=== PATIENT | female | born 1980 | race Caucasian/White ===

== ENCOUNTER 2017-10-14 00:10 | Emergency (ER) | payer OTHER ==
[~2017-10-14] VITALS: Ht 162.6 cm; Wt 111.1 kg
[~2017-10-14 00:10] MED LIST: BACTRIM DS TAB1 EACH PO; CLONAZEPAM2 MG PO; COPAXONE20 MG/KIT SQ; GABAPENTIN300 MG PO; LYRICA75 MG PO; OXCARBAZEPINE PO; PAXIL20 MG PO; SIMVASTATIN20 MG PO; TOPAMAX200 MG PO
--- OUTSIDE RECORDS SUMMARY | 2017-10-14 00:13 | XMS REPORT | Clinical Summary ---
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 Disp. Refills Start End Date Status Date baclofen (LIORESAL) 10 MG Take 1 tablet by mouth 2 07/29/19 Active tablet (two) times a day. 17 dextromethorphan-quinidin Take 1 capsule by mouth 2 06/02/19 Active e (NUEDEXTA) 20-10 mg (two) times a day. 17 capsule gabapentin (NEURONTIN) Take 300 mg by mouth 3 08/29/19 Active 300 mg capsule (three) times a day. 17 multivitamin (MULTIPLE Take 1 tablet by mouth Active VITAMINS) tablet daily. OXcarbazepine (TRILEPTAL) Take 300 mg by mouth 2 03/17/20 Active 300 MG tablet (two) times a day. 16 PARoxetine (PAXIL) 40 MG Take 40 mg by mouth Active tablet daily. topiramate (TOPAMAX) 200 Take 1 tablet by mouth 2 09/12/19 Active MG tablet (two) times a day. 17 HYDROcodone-acetaminophen Take 1 tablet by mouth 3 0 09/23/19 Active (NORCO) 5-325 mg per (three) times a day as 17 tablet needed. Active Problems Problem Noted Date Multiple sclerosis 10/09/2016 Cervicalgia 10/09/2016 Muscle spasm 10/09/2016 Myalgia 10/09/2016 Low back pain with left-sided sciatica 10/09/2016 Drug-induced constipation 10/09/2016 Social History Tobacco Use Types Packs/Day Years Used Date Former Smoker Comments: stopped 03/2016 Sex Assigned at Date Recorded Not on file Last Filed Vital Signs Not on file Plan of Treatment Health Maintenance Due Date Last Done Comments CERVICAL CANCER SCREENING 2003 INFLUENZA VACCINE 12/09/2017 Results Not on fileafter 10/13/2016 Insurance Payer Benefit Subscriber ID Type Phone Address Plan / Group MEDICARE MEDICARE xxxxxxxxxx Medicare [place] PART A [place] B MEDICAID MEDICAID xxxxxxxxx Medicaid
[2017-10-14 00:59] LABS: BASOPHILS # (AUTO) 0.1 (0.0-0.1); BASOPHILS % 0.5 % (0.0-1.0); EOSINOPHILS # (AUTO) 0.4 (0.0-0.4); EOSINOPHILS % 3.1 % (0.0-6.0); HEMATOCRIT 32.5 % (34.2-44.1); LYMPHOCYTES # (AUTO) 5.3 (1.0-3.2); LYMPHOCYTES % 44.1 % (18.0-39.1); MEAN CORPUSCULAR HEMOGLOBIN 25.3 pg (28-32); MEAN CORPUSCULAR HGB CONC 30.8 g/dL (31-35); MEAN CORPUSCULAR VOLUME 82.3 fL (81-99); MONOCYTES # (AUTO) 0.6 (0.2-0.8); MONOCYTES % 4.6 % (4.4-11.3); NEUTROPHILS # (AUTO) 5.7 (2.1-6.9); NEUTROPHILS % 47.2 % (38.7-80.0); PLATELET COUNT 297 x10e3/uL (140-360); RED BLOOD COUNT 3.95 x10e6/uL (3.6-5.1); RED CELL DISTRIBUTION WIDTH 17.7 % (11.7-14.4)
[2017-10-14 01:20] LABS: ALANINE AMINOTRANSFERASE 20 IU/L (0-55); ALBUMIN/GLOBULIN RATIO 1.1 (0.8-2.0); ALKALINE PHOSPHATASE 102 IU/L (40-150); ANION GAP 12.9 mmol/L (8-16); BLOOD UREA NITROGEN 10 mg/dL (7-26); BUN/CREATININE RATIO 12 (6-25); CALCIUM 9.5 mg/dL (8.4-10.2); CARBON DIOXIDE 23 mmol/L (22-29); CHLORIDE 108 mmol/L (98-107); CREATINE KINASE 78 IU/L (29-168); CREATININE, SERUM 0.85 mg/dL (0.57-1.11); EST GLOMERULAR FILTRATION RATE > 60 ML/MIN (60-); GLUCOSE 93 mg/dL (74-118); POTASSIUM 3.9 mmol/L (3.5-5.1); SODIUM 140 mmol/L (136-145)
--- NOTE | 2017-10-14 01:21 | Diagnostic Imaging Report ---
EXAMINATION: CHEST 2 VIEWS INDICATION: Chest pain COMPARISON: 12/14/2012 FINDINGS: TUBES and LINES: None. LUNGS: Lungs are well inflated. Lungs are clear. There is no evidence of pneumonia or pulmonary edema. PLEURA: No pleural effusion or pneumothorax. HEART AND MEDIASTINUM: The cardiomediastinal silhouette is unremarkable. BONES AND SOFT TISSUES: No acute osseous lesion. Soft tissues are unremarkable. UPPER ABDOMEN: No free air under the diaphragm. IMPRESSION: No acute thoracic abnormality. Signed by: Dr. Kamran Oliva M.D. on 10/14/2017 1:17 AM
[2017-10-14 01:38] LABS: ANISOCYTOSIS SLIGHT; EOSINOPHILS % (MANUAL) 5 % (0-7); LYMPHOCYTES % (MANUAL) 43 % (19-48); MONOCYTES % (MANUAL) 5 % (3.4-9.0); MYELOCYTES % (MANUAL) 1 % (0-0); NEUTROPHILS % (MANUAL) 46 % (40-74); PLATELET ESTIMATE ADEQUATE; PLATELET MORPHOLOGY COMMENT NORMAL; RBC MORPHOLOGY COMMENT NORMAL
[2017-10-14 01:59] VITALS: BP 142/92
== END 2017-10-14 02:03 | disposition home or self-care (01) ==
LOC: ER 00:10
DX: G40.309 Generalized idiopathic epilepsy and epileptic syndromes, not intractable, without status epilepticus (principal); G35 Multiple sclerosis; J45.909 Unspecified asthma, uncomplicated; F17.210 Nicotine dependence, cigarettes, uncomplicated
CPT/HCPCS: 36415; 71046; 80053; 82550; 82553; 84484; 85025; 93005; 99284

== ENCOUNTER 2020-03-19 05:12 | Emergency (ER) | payer OTHER ==
[~2020-03-19] VITALS: Ht 162.6 cm; Wt 111.1 kg
[2020-03-19 05:52] LABS: BASOPHILS # (AUTO) 0.1 (0.0-0.1); BASOPHILS % 0.5 % (0.0-1.0); EOSINOPHILS # (AUTO) 0.2 (0.0-0.4); EOSINOPHILS % 2.2 % (0.0-6.0); HEMATOCRIT 35.2 % (34.2-44.1); HEMOGLOBIN 11.4 g/dL (12.0-16.0); LYMPHOCYTES # (AUTO) 3.5 (1.0-3.2); LYMPHOCYTES % 35.4 % (18.0-39.1); MEAN CORPUSCULAR HEMOGLOBIN 30.2 pg (28-32); MEAN CORPUSCULAR HGB CONC 32.4 g/dL (31-35); MEAN CORPUSCULAR VOLUME 93.1 fL (81-99); MONOCYTES # (AUTO) 0.7 (0.2-0.8); MONOCYTES % 6.8 % (4.4-11.3); NEUTROPHILS # (AUTO) 5.4 (2.1-6.9); NEUTROPHILS % 54.5 % (38.7-80.0); PLATELET COUNT 323 x10e3/uL (140-360); RED BLOOD COUNT 3.78 x10e6/uL (3.6-5.1); RED CELL DISTRIBUTION WIDTH 13.8 % (11.7-14.4)
[2020-03-19 05:57] LABS: CLARITY,URINE CLEAR (CLEAR); COLOR,URINE YELLOW (YELLOW); KETONES,URINE NEGATIVE (NEGATIVE); LEUKOCYTE ESTERASE ,URINE NEGATIVE (NEGATIVE); NITRITE,URINE NEGATIVE (NEGATIVE); PROTEIN,URINE DIPSTICK NEGATIVE (NEGATIVE)
[2020-03-19 05:58] LABS: BILIRUBIN,URINE NEGATIVE (NEGATIVE); URINE UROBILINOGEN 0.2 mg/dL (0.2 - 1)
--- OUTSIDE RECORDS SUMMARY | 2020-03-19 06:06 | XMS REPORT | Clinical Summary ---
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 Active dextromethorphan-quinidin Take 1 0 /2 e (NUEDEXTA) 20-10 mg capsule by 7 capsule mouth 2 (two) times a day. Active gabapentin (NEURONTIN) Take 300 mg 0 //2 01 300 mg capsule by mouth 3 7 (three) times a day. Active multivitamin (MULTIPLE Take 1 tablet 0 VITAMINS) tablet by mouth daily. Active OXcarbazepine (TRILEPTAL) Take 300 mg 0 11/0 300 MG tablet by mouth 2 6 (two) times a day. Active PARoxetine (PAXIL) 40 MG Take 40 mg by 0 tablet mouth daily. Active topiramate (TOPAMAX) 200 Take 1 tablet 0 / /201 MG tablet by mouth 2 7 (two) times a day. Active HYDROcodone-acetaminophen Take 1 tablet 0 05/1 (NORCO) 5-325 mg per by mouth 3 7 tablet (three) times a day as needed. Active Problems Problem Noted Date Multiple sclerosis 10/09/2016 Cervicalgia 10/09/2016 Muscle spasm 10/09/2016 Myalgia 10/09/2016 Low back pain with left-sided sciatica 10/09/2016 Drug-induced constipation 10/09/2016 Social History Date Tobacco Use Types Packs/Day Years Used Former Smoker Comments: stopped 03/2016 Sex Assigned at Date Recorded Not on file Last Filed Vital Signs Not on file Plan of Treatment Health Maintenance Due Date Last Done Comments CERVICAL CANCER SCREENING 2003 INFLUENZA VACCINE 12/10/2019 Results Not on fileafter 03/19/2019 Insurance Type Payer Benefit Subscriber ID Effective Phone Address Plan / Dates Group Medicare MEDICARE MEDICARE [id number] 2016-P ALEX, PART A AND resent [place] B Medicaid MEDICAID MEDICAID [id number] 2016-P resent Advance Directives For more information, please contact: [phone] 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
--- OUTSIDE RECORDS SUMMARY | 2020-03-19 06:06 | XMS REPORT | Clinical Summary ---
Author Author FRANKI [facility]jobs [email or web address] Address Unknown Phone Unavailable Care Team Providers Care Belt Maker Helper Name Role Phone Serge Law PCP Unavailable Allergies Comments Active Allergy Reactions Severity Noted Date Cephalosporins 02/23/2018 Codeine Itching High 10/09/2016 Penicillins 02/23/2018 Tetracyclines 02/23/2018 Tramadol 02/23/2018 Medications Not on file Active Problems No known active problems Encounters Care Team Description Date Type Specialty Patricio Engle MD 3, [facility] Ministerio Mr Multiple sclerosis (HCC) 08/17/2019 [facility] Magnetic Resonance Encounter Imaging Patricio Engle MD 3, [facility] Ministerio Mr Multiple sclerosis (HCC) 08/17/2019 [facility] Magnetic Resonance Encounter Imaging Patricio Engle MD Multiple sclerosis ([facility]) (Primary Dx) 06/22/2019 Outside Orders Central Scheduling after 03/19/2019 Social History Date Tobacco Use Types Packs/Day Years Used Never Assessed Sex Assigned at Date Recorded Not on file Last Filed Vital Signs Reading Time Taken Comments Vital Sign 102/79 08/17/2019 1:16 PM CDT Blood Pressure 70 08/17/2019 1:16 PM CDT Pulse - - Temperature 18 08/17/2019 1:16 PM CDT Respiratory Rate 97% 08/17/2019 1:16 PM CDT Oxygen Saturation - - Inhaled Oxygen Concentration - - Weight - - Height - - Body Mass Index Plan of Treatment Health Maintenance Due Date Last Done Comments LIPID PANEL 2002 CERVICAL CANCER SCREENING 2003 PAP ONLY (Age 21-65) MEDICARE ANNUAL WELLNESS 05/12/2018 (YEAR 2 or FIRST YEAR if no IPPE) INFLUENZA VACCINE (#1) 2020 01/20/2011 Procedures Comments Procedure Name Priority Date/Time Associated Diag nosis MR CERVICAL SPINE WITH & Routine 08/17/2019 Multi ple sclerosis (HCC) WITHOUT IV CONTRAST 3:00 PM CDT MR BRAIN WITH & WITHOUT Routine 08/17/2019 Multip le sclerosis (HCC) IV CONTRAST 3:00 PM CDT after 03/19/2019 Results * MR cervical spine without & with IV contrast (08/17/2019 3:00 PM CDT) Specimen Narrative Performed At FINAL REPORT [facility] MR, SPINE, CERVICAL, WITHOUT / WITH IV CONTRAST HISTORY: Multiple sclerosis COMPARISON: MRI of the cervical spine 07/01/2018 TECHNIQUE: Multiplanar, multisequence M RI examination of the cervical spine was performed before and after th e administration of intravenous, gadolinium based contrast. Motion artifacts obscure some details. DISCUSSION: Alignment: Straightening of the cervica l spine lordosis. No scoliosis. Vertebrae: No acute fractures, infect ion or neoplasm. Mild to moderate chronic T3 vertebral compressi on fracture has not significantly changed. Cervicomedullary junction: No abnormali ties. Spinal cord: The cord is visualized from the foramen magnum through T4-T5. Focal T2 hyperintense lesions in the le ft lateral cord at C2, ventral cord at C3, and left ventral cord at C4 have not significantly changed with differences in technique t aken into account; these are best seen on axial 3-D MERGE images. No definite new T2 hyperintense cord le sions are seen. The spinal cord is normal in size. No CSF-like T1 cord hypointensities are seen. No abnormal cord enhancement is seen. Soft tissues: No signal abnormalities. Degenerative changes: The discs are ove rall preserved. IMPRESSION: 1. A few unchanged scattered T2 hyperin tense lesions in the cervical cord (with differences in technique saida en into account). 2. No enhancing or new T2 hyperintense cord lesions. Signed: Mario Bautista MD Report Verified Date/Time: 08/17/2019 15:15:52 Reading Location: [facility] Ro 2 - B01.626 Procedure Note Interface, External Ris In - 08/17/2019 4:49 PM CDT FINAL REPORT MR, SPINE, CERVICAL, WITHOUT / WITH IV CONTRAST HISTORY: Multiple sclerosis COMPARISON: MRI of the cervical spine 07/01/2018 TECHNIQUE: Multiplanar, multisequence MRI examination of the cervical spine was performed before and after the administration of intravenous, gadolinium based contrast. Motion artifacts obscure some details. DISCUSSION: Alignment: Straightening of the cervical spine lordosis. No scoliosis. Vertebrae: No acute fractures, infection or neoplasm. Mild to moderate chronic T3 vertebral compression fracture has not significantly changed. Cervicomedullary junction: No abnormalities. Spinal cord: The cord is visualized from the foramen magnum through T4-T5. Focal T2 hyperintense lesions in the left lateral cord at C2, ventral cord at C3, and left ventral cord at C4 have not significantly changed with differences in technique taken into account; these are best seen on axial 3-D MERGE images. No definite new T2 hyperintense cord lesions are seen. The spinal cord is normal in size. No CSF-like T1 cord hypointensities are seen. No abnormal cord enhancement is seen. Soft tissues: No signal abnormalities. Degenerative changes: The discs are overall preserved. IMPRESSION: 1. A few unchanged scattered T2 hyperint ense lesions in the cervical cord (with differences in technique taken into account). 2. No enhancing or new T2 hyperintense c ord lesions. Signed: Mario Bautista MD Report Verified Date/Time: 08/17/2019 15:15:52 Reading Location: [facility] Reading Room [address] [place] [address] Performing Organization Address City/State/Zipcode Ph one Number [facility] * MR brain without & with IV contrast (08/17/2019 3:00 PM CDT) Specimen Narrative Performed At FINAL REPORT [facility] MR, BRAIN, WITHOUT / WITH IV CONTRAST HISTORY: Multiple sclerosis COMPARISON: MRI of the brain 9 TECHNIQUE: Multiplanar, multisequence MRI of the b rain (including diffusion-weighted imaging) was perform ed before and after the administration of intravenous, gadolini um based contrast. 3-D FLAIR and postcontrast T1-weighted images wer e obtained. 10 mL of Gadavist were administered. DISCUSSION: Scalp/bone marrow: Unremarkable. Ventricles: Normal in size and config uration. No hydrocephalus. Extra-axial spaces: No masses or fluid collections. Parenchyma: T2 lesion load: Number: Innumerable scattered discrete and confluent T2 hyperintense lesions have not significantly changed. No definite new T2 hyperintense lesions are seen. Size: Ranging from 2 mm to 22 mm whe n confluent Location: Juxtacortical, periventricula r/deep white matter, corpus callosum, bilateral internal capsules, midbrain periaqueductal region, right jacklyn, and medulla. CSF-like T1 hypointensities: None. Enhancing foci: None. Previously seen e nhancing lesions have resolved. Corpus callosum volume: There is stable mild volume loss of the callosal body. Brain volume: There is stable mild gene ralized cerebral volume loss. Otherwise, no mass, hemorrhage, or acut e vascular insults. Vessels: Normal flow voids in major art eries and veins. Sellar/Suprasellar region: No abnorma lities. Craniocervical junction: No abnormaliti es. Incidental findings: None. IMPRESSION: 1.Previously seen enhancing lesions hav e resolved. Otherwise, unchanged innumerable scattered T2 hype rintense lesions are compatible with prior demyelination. 2.No enhancing or new T2 hyperintense l esions. 3.Stable mild generalized cerebral and callosal volume loss. Signed: Mario Bautista MD Report Verified Date/Time: 08/17/2019 15:27:39 Reading Location: [facility] Ro 2 - B01.626 Procedure Note Interface, External Ris In - 08/17/2019 4:49 PM CDT FINAL REPORT MR, BRAIN, WITHOUT / WITH IV CONTRAST HISTORY: Multiple sclerosis COMPARISON: MRI of the brain 07/01/2018 TECHNIQUE: Multiplanar, multisequence MRI of the brain (including diffusion-weighted imaging) was performed before and after the administration of intravenous, gadolinium based contrast. 3-D FLAIR and postcontrast T1-weighted images were obtained. 10 mL of Gadavist were administered. DISCUSSION: Scalp/bone marrow: Unremarkable. Ventricles: Normal in size and configuration. No hydrocephalus. Extra-axial spaces: No masses or fluid collections. Parenchyma: T2 lesion load: Number: Innumerable scattered discrete and confluent T2 hyperintense lesions have not significantly changed. No definite new T2 hyperintense lesions are seen. Size: Ranging from 2 mm to 22 mm when confluent Location: Juxtacortical, periventricular/deep white matter, corpus callosum, bilateral internal capsules, midbrain periaqueductal region, right jacklyn, and medulla. CSF-like T1 hypointensities: None. Enhancing foci: None. Previously seen enhancing lesions have resolved. Corpus callosum volume: There is stable mild volume loss of the callosal body. Brain volume: There is stable mild generalized cerebral volume loss. Otherwise, no mass, hemorrhage, or acute vascular insults. Vessels: Normal flow voids in major arteries and veins. Sellar/Suprasellar region: No abnormalities. Craniocervical junction: No abnormalities. Incidental findings: None. IMPRESSION: 1.Previously seen enhancing lesions have resolved. Otherwise, unchanged innumerable scattered T2 hyperintense lesions are compatible with prior demyelination. 2.No enhancing or new T2 hyperintense le sions. 3.Stable mild generalized cerebral and c allosal volume loss. Signed: Mario Bautista MD Report Verified Date/Time: 08/17/2019 15:27:39 Reading Location: [facility] Reading Room [address] [place] [address] Performing Organization Address City/State/Zipcode Ph one Number [facility] RIS after 03/19/2019 Insurance Type Payer Benefit Subscriber ID Effective Phone Address Plan / Dates Group [facility] [id number] 2017-P MEDICARE MGD CARE MEDICARE resent [phone]
--- OUTSIDE RECORDS SUMMARY | 2020-03-19 06:06 | XMS REPORT | Continuity of Care Document ---
Author Author [facility] t Organization [facility] Address [address] [place] [address] Phone Unavailable Care Team Providers Care Button Cutter Name Role Phone DONOVAN JAVED DO PCP Silvino JONES, Cecilio Osuna Attphys [phone] Caden Engle MD Attphys 3[facility] Attphys Unavailable Oniel JONES, Patricia Curry Attphys JEMAL LIVE Attphys Unavailable CHEL VASQUEZ Attphys Unavailable Lj TERRY Attphys Unavailable Payers Payer Name Policy Type Policy Number Effective Date Expiration Date S luciano [facility] - MEDICARE MGD CAREUNI SCOTTIE MEDICARE [id number] 2017-Present [id number] 2017 00:00:00 [facility] Self Pay NA [facility] Problems Condition Name Condition Details Condition Category Status Onset Date Resolution Date Last Treatment Date Treating Clinician Comments Source Multiple sclerosis Multiple sclerosis Disease Active 2016-10-09 00:00:0 0 Sidney Bonner Cervicalgia Cervicalgia Disease Active 2016-10-09 00:00:00 Sidney Bonner Muscle spasm Muscle spasm Disease Active 2016-10-09 00:00:00 Sidney Bonner Myalgia Myalgia Disease Active 2016-10-09 00:00:00 Sidney Bonner Low back pain with left-sided sciatica Low back pain with le ft-sided sciatica Disease Active 2016-10-09 00:00:00 Sidney Bonner Drug-induced constipation Drug-induced constipation Disease Ac tive 2016-10-09 00:00:00 Sidney hennessy Cellulitis of right lower extremity Cellulitis of leg, right Proble m Active 2015-03-31 00:00:00 [facility] Cellulitis of abdominal wall Cellulitis, abdominal wall Problem Active 2015-02-17 00:00:00 [facility] Allergies, Adverse Reactions, Alerts Allergy Name Allergy Type Status Severity Reaction(s) Onset Date Inacti ve Date Treating Clinician Comments Source Cephalosporins Propensity to adverse reactions Active [facility] Penicillins Propensity to adverse reactions Active 2017 00:00:00 [facility] Tetracyclines Propensity to adverse reactions Active 26-02-16 00:00:00 [facility] r Tramadol Propensity to adverse reactions Active 2018-02-23 00:00:00 [facility] Penicillin Allergy to Substance Active 2017-10-14 00:00:00 [facility] Cephalosporins Allergy to Substance Active 2017-10-14 00:00 :00 [facility] Tetracyclines Allergy to Substance Active 2017-10-14 00:00: 00 [facility] Tramadol Allergy to Substance Active Mild ITCH 2017-10-14 00:00:00 [facility] Cephalosporins Propensity to adverse reactions to drug Active Itching 2016-10-09 00:00:00 Sidney Mckeon odist Codeine Propensity to adverse reactions to drug Active Itching 2016-10-09 00:00:00 Sidney schaefer Codeine Propensity to adverse reactions Active Itching 00:00:00 [facility] Demeclocycline Propensity to adverse reactions to drug Active Rash 2014-02-01 00:00:00 Sidney schaefer Penicillins Propensity to adverse reactions to drug Active Rash 2014-02-01 00:00:00 Sidney schaefer Tramadol Propensity to adverse reactions to drug Active Itching 2014-02-01 00:00:00 Sidney schaefer Social History Social Habit Start Date Stop Date Quantity Comments Source Sex Assigned At [facility] Tobacco Comment 2016-10-09 00:00:00 2016-10-09 00:00:00 stopped 03/30 16 Sidney Bonner Smoking Status Start Date Stop Date Source Former smoker 2016-10-09 00:00:00 2016-10-09 00:00:00 Sidney Bonner Medications Ordered Medication Name Filled Medication Name Start Date Stop Da te Current Medication? Ordering Clinician Indication Dosage Frequency Signature (SIG) Comments Components Source multivitamin (MULTIPLE VITAMINS) tablet 2016-10-09 09:56:53 Yes 1{tbl} QD Take 1 tablet by mouth daily. Yg Bonner PARoxetine (PAXIL) 40 MG tablet 2016-10-09 09:56:53 Yes 40mg QD Take 40 mg by mouth daily. Sidney Bonner HYDROcodone-acetaminophen (NORCO) 5-325 mg per tablet 2016-09-22 00:00:00 Yes 1{tbl} Q.[id number] Take 1 tablet by mouth 3 (three) times a day as needed. Sidney Bonner topiramate (TOPAMAX) 200 MG tablet 2016-09-11 00:00:00 Yes 1{tbl} Q.5D Take 1 tablet by mouth 2 (two) times a day. Sidney Bonner gabapentin (NEURONTIN) 300 mg capsule 2016-08-28 00:00:00 Yes 300mg Q.[id number] Take 300 mg by mouth 3 (three) times a day. Sidney Bonner baclofen (LIORESAL) 10 MG tablet 2016-07-28 00:00:00 Yes 1{tbl} Q.5D Take 1 tablet by mouth 2 (two) times a day. Sidney Bonner dextromethorphan-quinidine (NUEDEXTA) 20-10 mg capsule 2016-06-02 00:00:00 Yes 1{capsule} Q.5D Take 1 capsule by mouth 2 (two) times a day. Sidney Bonner OXcarbazepine (TRILEPTAL) 300 MG tablet 2016-03-17 00:00:00 Yes 300mg Q.5D Take 300 mg by mouth 2 (two) times a day. 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 [facility] Gabapentin 300 Mg Capsule Gabapentin 300 Mg Capsule Yes 300 Three Times A Day [facility] Glatiramer (Copolymer-1) (Copaxone) 20 Mg/Kit Syr Glat iramer (Copolymer-1) (Copaxone) 20 Mg/Kit Syr Yes 20 Daily [facility] Oxycarbazpine Oxycarbazpine Yes 300 Twice A Day [facility] Paroxetine Hcl (Paxil) 20 Mg Tablet Paroxetine Hcl (Paxil) 20 Mg Tabl et Yes 20 Daily [facility] Topiramate (Topamax) 200 Mg Tablet Topiramate (Topamax) 200 Mg Tablet Yes 200 Twice A Day [facility] Clonazepam 2 Mg Tablet, 2 Mg Oral Clonazepam 2 Mg Tablet, 2 Mg O ral 2015-03-30 00:00:00 No 2 Daily [facility] Pregabalin (Lyrica) 75 Mg Cap, 75 Mg Oral Pregabalin ( Lyrica) 75 Mg Cap, 75 Mg Oral 2015-03-30 00:00:00 No 75 Twice A Day [facility] Simvastatin 20 Mg Tablet, 20 Mg Oral Simvastatin 20 Mg Tablet, 2 0 Mg Oral 2015-03-30 00:00:00 No 20 Daily [facility] Vital Signs Vital Name Observation Time Observation Value Comments Source Systolic blood pressure 2019-08-17 13:16:00 102 mm[Hg] [facility] Diastolic blood pressure 2019-08-17 13:16:00 79 mm[Hg] [facility] Heart rate 2019-08-17 13:16:00 70 /min [facility] Respiratory rate 2019-08-17 13:16:00 18 /min [facility] Oxygen saturation in Arterial blood by Pulse oximetry 08-16 13:16:00 97 /min [facility] Procedures Procedure Date / Time Performed Performing Clinician Norm maria victoria MR BRAIN WITH & WITHOUT IV CONTRAST 2019-08-17 15:00:00 Patricio Engle [facility] MR CERVICAL SPINE WITH & WITHOUT IV CONTRAST 2019-08-17 15:0 0:00 Patricio Engle [facility] X-ray of chest, two views 2017-10-14 00:00:00 AJAY TERRY [facility] Plan of Care Planned Activity Planned Date Details Comments Source Future Scheduled Test 2020-01-10 00:00:00 INFLUENZA VACCINE (#1) [code = INFLUENZA VACCINE (#1)] [facility] Future Scheduled Test 2019-12-10 00:00:00 INFLUENZA VACCINE [code = INFLUENZA VACCINE] [facility] Future Scheduled Test 2018-05-12 00:00:00 MEDICARE ANNUAL WE LLNESS (YEAR 2 or FIRST YEAR if no IPPE) [code = MEDICARE ANNUAL WELLNESS (YEAR 2 or FIRST YEAR if no IPPE)] [facility] Future Scheduled Test 2003 00:00:00 Screening for david gnant neoplasm of cervix (procedure) [code = 155584204] [facility] 00:00:00 Screening for david gnant neoplasm of cervix (procedure) [code = 616046767] [facility] Future Scheduled Test 2002 00:00:00 Lipid panel (proce dure) [code = 20669284] [facility] Encounters Start Date/Time End Date/Time Encounter Type Admission Type Attendi [facility] Care Department Encounter ID Source 2020-02-07 09:57:57 2020-02-07 10:27:57 Office Visit Enrrique Louis [facility] [id number] 2019-06-20 09:35:58 2019-06-20 10:05:58 Office Visit Patricio Flores [facility] [id number] 2018-12-16 10:32:28 2018-12-16 14:57:42 Office Visit Patricio Flores [facility] [id number] 2017-10-14 00:10:00 2017-10-14 02:03:00 Departed Emergency Room 1 [facility] [id number] [facility] Results Test Description Test Time Test Comments Results Result Comments Source MR, BRAIN, WITHOUT / WITH IV CONTRAST 2019-08-17 15:27:00 FINAL REPORT MR, BRAIN, WITHOUT / WITH IV CONTRAST HISTORY: Multiple sclerosis COMPARISON: MRI of the brain 07/01/2018 TECHNIQUE:Multiplanar, multisequence MRI of the brain (including diffusion-weighted imaging) was performed before and after the administration of intravenous, gadolinium based contrast. 3-D FLAIR and postcontrast T1-weighted images were obtained. 10 mL of Gadavist were administered. DISCUSSION: Scalp/bone marrow: Unremarkable.Ventricles: Normal in size and configuration. No hydrocephalus.Extra-axial spaces: No masses or fluid collections. Parenchyma:T2 lesion load: Number: Innumerable scattered discrete and confluent T2 hyperintense lesions have not significantly changed. No definite new T2 hyperintense lesions are seen.Size: Ranging from 2 mm to 22 mm when confluentLocation: Juxtacortical, periventricular/deep white matter, corpus callosum, bilateral internal capsules, midbrain periaqueductal region, right jacklyn, and medulla. CSF-like T1 hypointensities: None.Enhancing foci: None. Previously seen enhancing lesions have resolved.Corpus callosum volume: There is stable mild volume loss of the callosal body.Brain volume: There is stable mild generalized cerebral volume loss. Otherwise, no mass, hemorrhage, or acute vascular insults. Vessels: Normal flow voids in major arteries and veins.Sellar/Suprasellar region: No abnormalities.Craniocervical junction: No abnormalities.Incidental findings: None. IMPRESSION:1.Previously seen enhancing lesions have resolved. Otherwise, unchanged innumerable scattered T2 hyperintense lesions are compatible with prior demyelination.2.No enhancing or new T2 hyperintense lesions. 3.Stable mild generalized cerebral and callosal volume loss. Signed: Mario Bautistaepkevin Verified Date/Time: 08/17/2019 15:27:39 Reading Location: [facility] Room [address] [place] [address] brain without & with IV contrast 2019-08-17 15:27:00 Interface, External Ris In - 08/17/2019 4:49 PM CDTFINAL REPORT MR, BRAIN, WITHOUT / WITH IV CONTRAST HISTORY: Multiple sclerosis COMPARISON: MRI of the brain 07/01/2018 TECHNIQUE:Multiplanar, multisequence MRI of the brain (including diffusion-weighted imaging) was performed before and after the administration of intravenous, gadolinium based contrast. 3-D FLAIR and postco ntrast T1-weighted images were obtained. 10 mL of Gadavist were administered. DISCUSSION: Scalp/bone marrow: Unremarkable.Ventricles: Normal in size and configuration. No hydrocephalus.Extra-axial spaces: No masses or fluid collections. Parenchyma:T2 lesion load: Number: Innumerable scattered discrete and confluent T2 hyperintense lesions have not significantly changed. No definite new T2 hyperintense lesions are seen.Size: Ranging from 2 mm to 22 mm when confluentLocation: Juxtacortical, periventricular/deep white matter, corpus callosum, bilateral internal capsules, midbrain periaqueductal region, right jacklyn, and medulla. CSF-like T1 hypointensities: None.Enhancing foci: None. Previously seen enhancing lesions have resolved.Corpus callosum volume: There is stable mild volume loss of the callosal body.Brain volume: There is stable mild generalized cerebral volume loss. Otherwise, no mass, hemorrhage, or acute vascular insults. Vessels: Normal flow voids in major arteries and veins.S ellar/Suprasellar region: No abnormalities.Craniocervical junction: No abnormalities.Incidental findings: None. IMPRESSION:1.Previously seen enhancing lesions have resolved. Otherwise, unchanged innumerable scattered T2 hyperintense lesions are compatible with prior demyelination.2.No enhancing or new T2 hyperintense lesions. 3.Stable mild generalized cerebral and callosal volume loss. Signed: Mario Bautista MDRricardo Verified Date/Time: 08/17/2019 15:27:39 Reading Location: [facility] Reading Room [address] [place] [address] [facility] MR, SPINE, CERVICAL, WITHOUT / WITH IV CONTRAST 2019-08-17 15:15 :00 FINAL REPORT MR, SPINE, CERVICAL, WITHOUT / WITH IV CONTRAST HISTORY: Multiple sclerosis COMPARISON: MRI of the cervical spine 07/01/2018 TECHNIQUE: Multiplanar, multisequence MRI examination of the cervical spine was performed before and after the administration of intravenous, gadolinium based contrast. Motion artifacts obscure some details. DISCUSSION: Alignment: Straight ening of the cervical spine lordosis. No scoliosis.Vertebrae: No acute fractures, infection or neoplasm. Mild to moderate chronic T3 vertebral compression fracture has not significantly changed.Cervicomedullary junction: No abnormalities. Spinal cord: The cord is visualized from the foramen magnum through T4-T5.Focal T2 hyperintense lesions in the left lateral cord at C2, ventral cord at C3, and left ventral cord at C4 have not significantly changed with differences in technique taken into account; these are best seen on axial 3-D MERGE images.No definite new T2 hyperintense cord lesions are seen.The spinal cord is normal in size. No CSF-like T1 cord hypointensities are seen. No abnormal cord enhancement is seen. Soft tissues: No signal abnormalities. Degenerative changes: The discs are overall preserved. IMPRESSION: 1. A few unchanged scattered T2 hyperintense lesions in the cervical cord (with differences in technique taken into account).2. No enhancing or new T2 hyperintense cord lesions. Signed: Mario Bautista Verified Date/Time: 08/17/2019 15:15:52 Reading Location: [facility] Room [address] [place] [address] cervical spine without & with IV contrast 2019-08-17 15:15:00 Interface, External Ris In - 08/17/2019 4:49 PM CDTFINAL REPORT MR, SPINE, CERVICAL, WITHOUT / WITH IV CONTRAST HISTORY: Multiple sclerosis COMPARISON: MRI of the cervical spine 07/01/2018 TECHNIQUE: Multiplanar, multisequence MRI examination of the cervical spine was performed before and after the administration of intravenous, gadolinium based contrast. Motion artifacts obscure some details. DISCUSSION: Alignment: Straightening of the cervical spine lordosis. No scoliosis.Vertebrae: No acute fractures, infection or neoplasm. Mild to moderate chronic T3 vertebral compression fracture has not significantly changed.Cervicomedullary junction: No abnormalities. Spinal cord: The cord is visualized from the foramen magnum through T4-T5.Focal T2 hyperintense lesions in the left lateral cord at C2, ventral cord at C3, and left ventral cord at C4 have not significantly changed with differences in technique taken into account; these are best seen on axial 3-D MERGE images.No definite new T2 hyperintense cord lesions are seen.The spinal cord is normal in size. No CSF-like T1 cord hypointensities are seen. No abnormal cord enhancement is seen. Soft tissues: No signal abnormalities. Degenerative changes: The discs are overall preserved. IMPRESSION: 1. A few unchanged scattered T2 hyperintense lesions in the cervical cord (with differences in technique taken into account).2. No enhancing or new T2 hyperintense cord lesions. Signed: Mario Bautista Verified Date/Time: 08/17/2019 15:15:52 Reading Location: [facility] Reading Room [address] [place] [address] [facility] MR, SPINE, CERVICAL, WITHOUT / WITH IV CONTRAST 2018-07-01 17:40 :00 FINAL REPORT Examination: MR, SPINE, CERVICAL, WITHOUT / WITH IV CONTRAST HISTORY:38-year-old female with relapsing remitting multiple sclerosis, currently on disease modifying therapy and has missed a couple of doses and recently had two loss of consciousness spells, possibly seizures.COMPARISON:[facility] cervical spine MRI performed September 22, 2017.TECHNIQUE: Sagittal and axial T1 postcontrast; sagittal T2 and STIR. Axial T2. Intravenous contrast: 10 mL Gadavist FINDINGS:Limited exam due to motion artifact on the axial and sagittal T2 and post contrast images. Spinal cord size: Normal, unchanged. Enhancing lesions: None, unchanged. T2 lesions: Single lesion the ventral cord at C3 is relatively comparing sagittal STIR imaging as there was significant motion artifact on both the axial and sagittal T2 images.No new large lesion. T1 lesions: There are no lesions of cerebrospinal fluid equivalent intensity. Vertebrae: Normal alignment, height, and signal i ntensity. Discs: No abnormalities.Foramen magnum: No Chiari malformation, mass, or basilar invagination. Additional findings:None. IMPRESSION:1.Despite limitation, no definite new or enhancing lesion lesion when compared to prior cervical spine MRI performed September 22, 2017. 2.Unchanged single nonenhancing lesion, consistent multiple sclerosis. Signed: Milly Rodríguezort Verified Date/Time: 07/01/2018 17:40:05 , BRAIN, WITHOUT / WITH IV CONTRAST 2018-07-01 17:36:00 FINAL REPORT Examination: MR, BRAIN, WITHOUT / WITH IV CONTRAST HISTORY:38-year-old female with relapsing remitting multiple sclerosis, currently on disease modifying therapy and has missed a couple of doses and recently had two loss of consciousness spells, possibly seizures.COMPARISON:[facility] brain MRI performed September 22, 2017.TECHNIQUE: Sagittal FLAIR with axial and coronal reconstructions; axial precontrast T1, postcontrast T2, FLAIR; axial, sagittal and coronal postcontrast T1. Contrast: 10 mL Gadavist. FINDINGS:T2 lesions: Number: Two new lesions at the right callosal septal interface and right inferior parietal lobule which are also enhancing. Unchanged remaining innumerable discrete T2 lesions. Location: Periventricular, deep, callosal septal interface, juxtacortical white matter. Right jacklyn, left posterior medulla. T1 "black holes": There are no lesions of cerebrospinal fluid equivalent intensity. There is a single lesion of moderate hypointensity in the right frontal periventricular white matter. Enhancing lesions: There are two new enhancing lesions at the right callosal septal interface and right inferior parietal lobule. Corpus callosum volume: Mild diffuse volume loss, unchanged. Brain volume: Mild generalized volume loss, unchanged. Additional finding: No additional intracranial abnormality. IMPRESSION:1.There are two new enhancing lesion when compared to prior [facility] brain MRI performed September 22, 2017, consistent with active demyelinating plaques.2.Unchanged remaining nonenhancing lesions, consistent multiple sclerosis. Signed: Milly Rodríguez MDReport Verified Date/Time: 07/01/2018 17:36:28 -CREATININE 2018-07-01 12:21:00 Test Item POC-CREATININE (BEAKER) (test code = 1859) 0.7 mg/dL 0.6-1.[address] [address] POC-EGFR (BEN) (test code = 1860) 95 mL/min/1.73M2 CT, BRAIN, WITHOUT [id number] 17:50:00Reason for exam:->headacheIs the patient ?->UnknownWhat is the patient's sedation requirement?->No SedationFINAL REPORT CT head without contrast 02/23/2018 5:49 PM CLINICAL HISTORY: Headache, acute, norm neuro exam TECHNIQUE: Axial noncontrast CT images through the head were obtained. This examination was performed according to our departmental dose optimization program, which includes automated exposure control, adjustment of the mA and/or kV according to patient size, and/or use of iterated reconstruction technique. COMPARISON: None available FINDINGS: There is no hemorrhage, extra-axial collection, mass, hydrocephalus, or midline shift. Supratentorial white matter leukoencephalopathy may be of microvascular or demyelinating etiology. There is parenchymal volume loss that is greater than expected for age. The visualized paranasal sinuses and mastoid air cells are well aerated. The skull is intact. IMPRESSION: No intracranial hemorrhage or mass effect. Supratentorial white matter leukoencephalopathy, which can be further characterized with MRI if clinically indicated. Signed: Del Harrington Verified Date/Time: 02/23/2018 17:50:23 Reading Location: [facility] Reading Room , CHEST, 1 VIEW, NON [id number] 17:17:00Reason for exam:->chest painIs the patient ?->UnknownFINAL REPORT Chest, AP view. History: chest pain. Comparison: None available. Discussion: The cardiomediastinal silhouette and pulmonary vasculature are within normal limits. The lungs are clear without evidence of consolidation or effusion. There are no acute osseous abnormalities. The soft tissues are unremarkable. IMPRESSION: No acute cardiopulmonary abnormality. Signed: Emily López Verified Date/Time: 02/23/2018 17:17:44 Reading Location: [facility] C0[facility] Consult Reading Room B-TYPE NATRIURETIC FACTOR (BNP)2018-02-23 17:04:00* Test Item Value Reference Range Interpretation Comments B-TYPE NATRIURETIC PEPTIDE (BEAKER) (test code = 700) 13 pg/mL 0-100 TROPONIN [id number] 17:03:00* Test Item Value Reference Range Interpretation Comments TROPONIN I (BEAKER) (test code = 397) < ng/mL 0.00-0.03 Troponin I (TnI) levels must be interpreted in the context of the presenting sym ptoms and the clinical findings. Elevated TnI levels indicate myocardial damage, but are not specific for ischemic heart disease. Elevated TnI levels are seen in patients with other cardiac conditions (including myocarditis and congestive h eart failure), and slight TnI elevations occur in patients with other conditions , including sepsis, renal failure, acidosis, acute neurological disease, and per sistent tachyarrhythmia.[id number] 16:55:00* Test Item Value Reference Range Interpretation Comments MAGNESIUM (BEAKER) (test code = 627) 2.3 mg/dL 1.6-2.6 BASIC METABOLIC [id number] 16:55:00* Test Item Value Reference Range Interpretation Comments SODIUM (BEAKER) (test code = 381) 139 meq/L 136-145 POTASSIUM (BEAKER) (test code = 379) 4.0 meq/L 3.5-5.1 CHLORIDE (BEAKER) (test code = 382) 108 meq/L 98-107 H CO2 (BEAKER) (test code = 355) 24 meq/L 22-29 BLOOD UREA NITROGEN (BEAKER) (test code = 354) 7 mg/dL 7-21 CREATININE (BEAKER) (test code = 358) 0.77 mg/dL 0.57-1.25 GLUCOSE RANDOM (BEAKER) (test code = 652) 103 mg/dL 70-105 CALCIUM (BEAKER) (test code = 697) 9.3 mg/dL 8.4-10.2 EGFR (BEAKER) (test code = 1092) 85 mL/min/1.73 sq m ESTIMATED GFR IS NOT ACCURATE CREATININE CLEARANCE IN PREDICTING GLOMERULAR FILTRATION RATE. ESTIMATED GFR IS NOT APPLICABLE FOR DIALYSIS PATIENTS. CBC W/PLT COUNT & AUTO [id number] 16:40:00* Test Item Value Reference Range Interpretation Comments WHITE BLOOD CELL COUNT (BEAKER) (test code = 775) 10.8 K/ L 3.5- 10.5 H RED BLOOD CELL COUNT (BEAKER) (test code = 761) 4.34 M/ L 3.93-5 .22 HEMOGLOBIN (BEAKER) (test code = 410) 10.9 GM/DL 11.2-15.7 L HEMATOCRIT (BEAKER) (test code = 411) 36.9 % 34.1-44.9 MEAN CORPUSCULAR VOLUME (BEAKER) (test code = 753) 85.0 fL 79. 4-94.8 MEAN CORPUSCULAR HEMOGLOBIN (BEAKER) (test code = 751) 25.1 pg 25.6-32.2 L MEAN CORPUSCULAR HEMOGLOBIN CONC (BEAKER) (test code = 752) 29.5 GM/DL 32.2-35.5 L RED CELL DISTRIBUTION WIDTH (BEAKER) (test code = 412) 19.9 % 11.7-14.4 H PLATELET COUNT (BEAKER) (test code = 756) 313 K/CU MM 150-450 MEAN PLATELET VOLUME (BEAKER) (test code = 754) 9.0 fL 9.4-12 .3 L NUCLEATED RED BLOOD CELLS (BEAKER) (test code = 413) 0 /100 WBC 0 -0 NEUTROPHILS RELATIVE PERCENT (BEAKER) (test code = 429) 53 % LYMPHOCYTES RELATIVE PERCENT (BEAKER) (test code = 430) 39 % MONOCYTES RELATIVE PERCENT (BEAKER) (test code = 431) 5 % EOSINOPHILS RELATIVE PERCENT (BEAKER) (test code = 432) 3 % BASOPHILS RELATIVE PERCENT (BEAKER) (test code = 437) 1 % NEUTROPHILS ABSOLUTE COUNT (BEAKER) (test code = 670) 5.70 K/ L 1.56-6.13 LYMPHOCYTES ABSOLUTE COUNT (BEAKER) (test code = 414) 4.18 K/ L 1.18-3.74 H MONOCYTES ABSOLUTE COUNT (BEAKER) (test code = 415) 0.52 K/ L 0. 24-0.36 H EOSINOPHILS ABSOLUTE COUNT (BEAKER) (test code = 416) 0.28 K/ L 0.04-0.36 BASOPHILS ABSOLUTE COUNT (BEAKER) (test code = 417) 0.08 K/ L 0. 01-0.08 IMMATURE GRANULOCYTES-RELATIVE PERCENT (BEAKER) (test code = 2801) 0 % 0-1 Creatine Kinase [id number] 01:43:00* Test Item Value Reference Range Interpretation Comments Creatine Kinase MB (test code = 23301-2) 0.80 0-5.0 [facility] WorthTroponin [id number] 01:43:00* Test Item Value Reference Range Interpretation Comments Troponin I (test code = PWC5571) 0.004 0-0.300 [facility] WorthDifferential Total Cells Counted 2017-10-14 01:38:00* Test Item Value Reference Range Interpretation Comments Differential Total Cells Counted (test code = Differen tial Total Cells Counted) 100 [facility] WorthNeutrophils % (Manual)2017-10-14 01:38:00 * Test Item Value Reference Range Interpretation Comments Neutrophils % (Manual) (test code = 87724-2) 46 40-74 [facility] WorthLymphocytes % (Manual)2017-10-14 01:38:00 * Test Item Value Reference Range Interpretation Comments Lymphocytes % (Manual) (test code = 737-7) 43 19-48 [facility] WorthMonocytes % (Manual)2017-10-14 01:38:00* Test Item Value Reference Range Interpretation Comments Monocytes % (Manual) (test code = 744-3) 5 3.4-9.0 [facility] WorthEosinophils % (Manual)2017-10-14 01:38:00 * Test Item Value Reference Range Interpretation Comments Eosinophils % (Manual) (test code = 714-6) 5 0-7 [facility] WorthMyelocytes %2017-10-14 01:38:00* Test Item Value Reference Range Interpretation Comments Myelocytes % (test code = 749-2) 1 0-0 H [facility] WorthPlatelet Blazeuvw0016-91-28 01:38:00* Test Item Value Reference Range Interpretation Comments Platelet Estimate (test code = 46728-1) ADEQUATE [facility] WorthPlatelet Morphology Svrqhnu6358-56-34 01:38:00* Test Item Value Reference Range Interpretation Comments Platelet Morphology Comment (test code = 99058-3) NORMAL [facility] WorthAnisocytosis2018-06-06 01:38:00* Test Item Value Reference Range Interpretation Comments Anisocytosis (test code = 702-1) SLIGHT [facility] WorthRed Cell Morphology Mfrmizd7892-10-92 01:38:00* Test Item Value Reference Range Interpretation Comments Red Cell Morphology Comment (test code = 6742-1) NORMAL [facility] Nxpze8552-88-37 01:22:00* Test Item Value Reference Range Interpretation Comments Sodium Level (test code = 2951-2) 140 136-145 [facility] WorthPotassium Tkbjh3270-04-06 01:22:00* Test Item Value Reference Range Interpretation Comments Potassium Level (test code = 2823-3) 3.9 3.5-5.1 [facility] WorthChloride Rrjhb3193-27-21 01:22:00* Test Item Value Reference Range Interpretation Comments Chloride Level (test code = 2075-0) 108 98-107 H [facility] WorthCarbon Dioxide Izbbs2983-55-83 01:22:00* Test Item Value Reference Range Interpretation Comments Carbon Dioxide Level (test code = 2028-9) 23 22-29 [facility] WorthAnion Ibu1181-86-01 01:22:00* Test Item Value Reference Range Interpretation Comments Anion Gap (test code = 64127-6) 12.9 8-16 [facility] WorthBlood Urea Rsddonpy4518-98-22 01:22:00* Test Item Value Reference Range Interpretation Comments Blood Urea Nitrogen (test code = 3094-0) 10 7-26 [facility] WorthCreatinine2018-06-06 01:22:00* Test Item Value Reference Range Interpretation Comments Creatinine (test code = 2160-0) 0.85 0.57-1.11 [facility] WorthBUN/Creatinine Vriwm8175-41-33 01:22:00* Test Item Value Reference Range Interpretation Comments BUN/Creatinine Ratio (test code = 3097-3) 12 6-25 [facility] WorthEstimat Glomerular Filtration Rate 2017-10-14 01:22:00* Test Item Value Reference Range Interpretation Comments Estimat Glomerular Filtration Rate (test code = 10554-1) 60- >60 Ranges were taken from the National Kidney Disease Education Program and the [facility] Kidney Foundation literature.Reference ranges:60 or greater: Eksgtj98-04 ( for 3 consecutive months): Chronic kidney disease 15 or less: Kidney failureB[facility] WorthGlucose Pukrg3333-30-28 01:22:00* Test Item Value Reference Range Interpretation Comments Glucose Level (test code = YOF1979) 93 74-118 [facility] WorthCalcium Loxxs9290-35-80 01:22:00* Test Item Value Reference Range Interpretation Comments Calcium Level (test code = 98671-3) 9.5 8.4-10.2 [facility] WorthTotal Mznxpuhkx6833-39-53 01:22:00* Test Item Value Reference Range Interpretation Comments Total Bilirubin (test code = 1975-2) 0.3 0.2-1.2 [facility] WorthAspartate Amino Transf (AST/SGOT) 2017-10-14 01:22:00* Test Item Value Reference Range Interpretation Comments Aspartate Amino Transf (AST/SGOT) (test code = Aspartate Amino Transf (AST/SGOT)) 17 5-34 [facility] WorthAlanine Aminotransferase (ALT/SGPT) 2017-10-14 01:22:00* Test Item Value Reference Range Interpretation Comments Alanine Aminotransferase (ALT/SGPT) (test code = 1742-6) 20 0-55 [facility] WorthTotal Oxkdnwx6135-94-84 01:22:00* Test Item Value Reference Range Interpretation Comments Total Protein (test code = 2885-2) 7.6 6.5-8.1 [facility] WorthAlbumin2018-06-06 01:22:00* Test Item Value Reference Range Interpretation Comments Albumin (test code = 1751-7) 4.0 3.5-5.0 [facility] WorthGlobulin2018-06-06 01:22:00* Test Item Value Reference Range Interpretation Comments Globulin (test code = 86684-4) 3.6 2.3-3.5 H [facility] WorthAlbumin/Globulin Zgkfx5552-25-28 01:22:00 * Test Item Value Reference Range Interpretation Comments Albumin/Globulin Ratio (test code = 1759-0) 1.1 0.8-2.0 [facility] WorthAlkaline Eqmwnfyeutx9191-96-69 01:22:00* Test Item Value Reference Range Interpretation Comments Alkaline Phosphatase (test code = 6768-6) 102 40-150 [facility] WorthCreatine Fddnff6476-73-98 01:22:00* Test Item Value Reference Range Interpretation Comments Creatine Kinase (test code = 2157-6) 78 29-168 [facility] WorthWhite Blood Zqomz8494-48-73 01:02:00* Test Item Value Reference Range Interpretation Comments White Blood Count (test code = 6690-2) 12.01 4.8-10.8 H [facility] WorthRed Blood Owmie7966-84-98 01:02:00* Test Item Value Reference Range Interpretation Comments Red Blood Count (test code = 789-8) 3.95 3.6-5.1 [facility] WorthHemoglobin2018-06-06 01:02:00* Test Item Value Reference Range Interpretation Comments Hemoglobin (test code = 44488-2) 10.0 12.0-16.0 L [facility] WorthHematocrit2018-06-06 01:02:00* Test Item Value Reference Range Interpretation Comments Hematocrit (test code = 4544-3) 32.5 34.2-44.1 L [facility] WorthMean Corpuscular Oywjmp7878-25-41 01:02:00* Test Item Value Reference Range Interpretation Comments Mean Corpuscular Volume (test code = 787-2) 82.3 81-99 [facility] WorthMean Corpuscular Aasnqywgsw2933-21-79 01:02:00* Test Item Value Reference Range Interpretation Comments Mean Corpuscular Hemoglobin (test code = 785-6) 25.3 28-32 L [facility] WorthMean Corpuscular Hemoglobin Concent 2017-10-14 01:02:00* Test Item Value Reference Range Interpretation Comments Mean Corpuscular Hemoglobin Concent (test code = 786-4) 30.8 31-35 L [facility] WorthRed Cell Distribution Zcucv6263-51-24 01:02:00* Test Item Value Reference Range Interpretation Comments Red Cell Distribution Width (test code = 17528-0) 17.7 11.7 -14.4 H [facility] WorthPlatelet Ioket0647-24-07 01:02:00* Test Item Value Reference Range Interpretation Comments Platelet Count (test code = 777-3) 297 140-360 [facility] WorthNeutrophils (%) (Auto)2017-10-14 01:02:00 * Test Item Value Reference Range Interpretation Comments Neutrophils (%) (Auto) (test code = 08640-7) 47.2 38.7-80.0 [facility] WorthLymphocytes (%) (Auto)2017-10-14 01:02:00 * Test Item Value Reference Range Interpretation Comments Lymphocytes (%) (Auto) (test code = 736-9) 44.1 18.0-39.1 H [facility] WorthMonocytes (%) (Auto)2017-10-14 01:02:00* Test Item Value Reference Range Interpretation Comments Monocytes (%) (Auto) (test code = 5905-5) 4.6 4.4-11.3 [facility] WorthEosinophils (%) (Auto)2017-10-14 01:02:00 * Test Item Value Reference Range Interpretation Comments Eosinophils (%) (Auto) (test code = 713-8) 3.1 0.0-6.0 [facility] WorthBasophils (%) (Auto)2017-10-14 01:02:00* Test Item Value Reference Range Interpretation Comments Basophils (%) (Auto) (test code = 706-2) 0.5 0.0-1.0 [facility] WorthIM GRANULOCYTES %2017-10-14 01:02:00* Test Item Value Reference Range Interpretation Comments IM GRANULOCYTES % (test code = IM GRANULOCYTES %) 0.5 0.0- 1.0 [facility] WorthNeutrophils # (Auto)2017-10-14 01:02:00* Test Item Value Reference Range Interpretation Comments Neutrophils # (Auto) (test code = 751-8) 5.7 2.1-6.9 [facility] WorthLymphocytes # (Auto)2017-10-14 01:02:00* Test Item Value Reference Range Interpretation Comments Lymphocytes # (Auto) (test code = 80053-1) 5.3 1.0-3.2 H [facility] WorthMonocytes # (Auto)2017-10-14 01:02:00* Test Item Value Reference Range Interpretation Comments Monocytes # (Auto) (test code = 742-7) 0.6 0.2-0.8 [facility] WorthEosinophils # (Auto)2017-10-14 01:02:00* Test Item Value Reference Range Interpretation Comments Eosinophils # (Auto) (test code = 711-2) 0.4 0.0-0.4 [facility] WorthBasophils # (Auto)2017-10-14 01:02:00* Test Item Value Reference Range Interpretation Comments Basophils # (Auto) (test code = 704-7) 0.1 0.0-0.1 [facility] WorthAbsolute Immature Granulocyte (auto 2017-10-14 01:02:00* Test Item Value Reference Range Interpretation Comments Absolute Immature Granulocyte (auto (tristan t code = Absolute Immature Granulocyte (auto) 0.06 0-0.1 [facility] WorthCHE[facility] [place] [address] Patient Name: ASHLY BERUMEN MR #: [id number] : 1980 Age/Sex: 37/F Req #: [id number] Adm Physician: Ordered by: CULLEN TERRY MD Report #: [id number] Location: ER Room/Bed: Procedure: [id number] DX/CHEST 2 VIEWS Exam Date: 10/14/17 Exam Time: 0042 REPORT STATUS: S igned EXAMINATION: CHEST 2 VIEWS INDICATION: Chest pain COMPARISON: 12/14/2012 FINDINGS: TUBES and LINES: None. AN NGS: Lungs are well inflated. Lungs are clear. There is no evidence of pne umonia or pulmonary edema. PLEURA: No pleural effusion or pneumothorax. HEART AND MEDIASTINUM: The cardiomediastinal silhouette is unremarkable. BONES AND SOFT TISSUES: No acute osseous lesion. Soft tissues are unre markable. UPPER ABDOMEN: No free air under the diaphragm. IMPRESSI ON: No acute thoracic abnormality. Signed by: Dr. Kamran Oliva M.D. o n 10/14/2017 1:17 AM Dictated By: KAMRAN TONY MD Electronically S igned By: KAMRAN TONY MD on 10/14/17116 Transcribed By: NATHANIEL on 0 10/14/17116 COPY TO: CULLEN TERRY MD
[2020-03-19 06:08] LABS: AMPHETAMINES SCREEN,URINE NEGATIVE (NEGATIVE); BENZODIAZEPINES SCREEN,URINE NEGATIVE (NEGATIVE); PHENCYCLIDINE SCREEN,URINE NEGATIVE (NEGATIVE)
[2020-03-19 06:09] LABS: BACTERIA,URINE RARE /HPF; EPITHELIAL CELLS,URINE FEW /LPF; RBC,URINE 0-5 /HPF (0-5); WBC,URINE (MAN) 0-5 /HPF (0-5)
[2020-03-19] MEDS ORDERED: SODIUM CHLORIDE 0.9% 1000ML 1,000 ML IV STA (06:13)
[2020-03-19] MEDS ORDERED: DIPHENHYDRAMINE HCL INJ 50 MG/ML VIAL IV ONE (06:15)
[2020-03-19] MEDS ORDERED: MAGNESIUM SULFATE 2GM/50ML 50 ML IV ONE (06:15)
[2020-03-19] MEDS ORDERED: METOCLOPRAMIDE HCL 10 MG/2ML VIAL IV ONE (06:15)
[2020-03-19] MEDS ORDERED: ACETAMIN/BUTALBITAL/CAFFEINE TAB PO ONE (06:15)
[2020-03-19 06:19] LABS: ALANINE AMINOTRANSFERASE 43 IU/L (0-55); ALBUMIN 3.7 g/dL (3.5-5.0); ALBUMIN/GLOBULIN RATIO 1.1 (0.8-2.0); ALKALINE PHOSPHATASE 76 IU/L (40-150); ANION GAP 13.9 mmol/L (8-16); BLOOD UREA NITROGEN 13 mg/dL (7-26); BUN/CREATININE RATIO 13 (6-25); CALCIUM 8.5 mg/dL (8.4-10.2); CARBON DIOXIDE 25 mmol/L (22-29); CHLORIDE 99 mmol/L (98-107); CREATINE KINASE 92 IU/L (29-168); CREATININE, SERUM 0.98 mg/dL (0.57-1.11); EST GLOMERULAR FILTRATION RATE > 60 ML/MIN (60-); GLUCOSE 114 mg/dL (74-118); POTASSIUM 3.9 mmol/L (3.5-5.1); SODIUM 134 mmol/L (136-145)
--- NOTE | 2020-03-19 06:32 | Diagnostic Imaging Report ---
EXAMINATION: Head CT without contrast. HISTORY:Headache, bilateral arm weakness. COMPARISON:None. TECHNIQUE: Multidetector axial images were obtained from the foramen magnum to the vertex without contrast. The images were reconstructed using brain and bone algorithms. Thin section brain images were reformatted into coronal and sagittal planes. Dose modulation, iterative reconstruction, and/or weight based adjustment of the mA/kV was utilized to reduce the radiation dose to as low as reasonably achievable. Intravenous contrast: None IMAGE QUALITY: Acceptable. FINDINGS: Skull/scalp: No lytic or blastic. lesions. No surgical changes. Parenchyma: Nonspecific few, scattered supratentorial white matter hypodensity, particularly in right subinsular region, bilateral bailey radiata and right posterior centrum semiovale. No acute hemorrhage, mass or acute major vascular territorial infarct. Arteries: No density suggestive of thrombosis. Dural sinuses: No abnormal density suggestive of thrombosis. Ventricles: No hydrocephalus or displacement. Extra-axial spaces: No abnormal density. Brain volume: Normal for age. Craniocervical junction: No mass, Chiari malformation, or basilar invagination. Sella: No mass. Paranasal/mastoid sinuses: Imaged portions unremarkable. IMPRESSION: 1. No acute intracranial abnormality, particularly no acute hemorrhage, mass or acute major vascular territorial infarct. 2. Mild supratentorial white matter microvascular disease, the differential consideration includes demyelinating disease, vasculitis or small vessel ischemia in appropriate clinical setting. If there is clinical concern can be followed up with MRI of the brain with and without contrast for further assessment. Signed by: Dr. Joanna Gillette M.D. on 03/19/2020 6:29 AM
--- NOTE | 2020-03-19 06:32 | Diagnostic Imaging Report ---
EXAMINATION: CHEST SINGLE (PORTABLE) INDICATION: ^HEADACHE; WEAKNESS ^[id number] ^0600 COMPARISON: 10/14/2017 FINDINGS: AP view TUBES and LINES: None. LUNGS: Lungs are well inflated. There is no evidence of pneumonia or pulmonary edema. PLEURA: No pleural effusion or pneumothorax. HEART AND MEDIASTINUM: The cardiomediastinal silhouette is unremarkable. BONES AND SOFT TISSUES: No acute osseous lesion. Soft tissues are unremarkable. UPPER ABDOMEN: No free air under the diaphragm. IMPRESSION: No acute thoracic abnormality. Signed by: Dr. Wilfredo Paiz MD on 03/19/2020 6:29 AM
--- NOTE | 2020-03-19 07:00 | NUR ---
RECEIVED REPORT FROM OFF GOING NURSE. PATIENT IN ROOM IN BED. IV FLUIDS ORDERED. PT REPORTS MEDICATIONS FOR HEADACHE HAVE BEEN GIVEN AND THAT SHE MINIMALLY FEELS BETTER. PENDING DISPO.
--- NOTE | 2020-03-19 07:13 | Emergency Department Note ---
History of Present Illnes History of Present Illness Chief Complaint: Headache History of Present Illness This is a 39 year old female arrived to the ED with complaints of a headache.. 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 Historian: Patient Arrival Mode: Car Radiation: Reports non-radiation Timing of current episode: constant Progression: unchanged Chronicity: recurrent Relieving factors: none Exacerbating factors: none Past Medical/Family History Physician Review I have reviewed the patient's past medical and family history. Any updates have been documented here. Past Medical History Recent Fever: No Clinical Suspicion of Infectio: No New/Unexplained Change in Ment: No Past Medical History: Hypertension, Seizure Disorder, Migraines Other Medical History: MS Past Surgical History: Other Surgery: Other Last Tetanus: Not up to date Review of Systems Review of Systems Constitutional: Reports no symptoms; Denies weakness EENTM: Reports no symptoms Cardiovascular: Reports no symptoms Respiratory: Reports no symptoms Gastrointestinal: Reports no symptoms Genitourinary: Reports no symptoms Musculoskeletal: Reports no symptoms Integumentary: Reports no symptoms Neurological: Reports as per HPI, Reports headache; Denies numbness, Denies paresthesia, Denies seizure, Denies tingling, Denies tremors, Denies weakness Psychological: Reports no symptoms Endocrine: Reports no symptoms Hematological/Lymphatic: Reports no symptoms Review of other systems: All other systems negative Physical Exam Related Data Allergies: Coded Allergies: tramadol (Verified Allergy, Mild, ITCH, 10/14/17) Cephalosporins (Verified Allergy, Unknown, 10/14/17) Penicillins (Verified Allergy, Unknown, 10/14/17) Tetracyclines (Verified Allergy, Unknown, 10/14/17) Triage Vital Signs Vital Signs Date Time Temp Pulse Resp B/P (MAP) Pulse Ox O2 Delivery O2 Flow Rate FiO2 03/19/20 05:22 97.9 55 20 112/78 100 Room Air Vital signs reviewed: Yes Physical Exam CONSTITUTIONAL Constitutional: Present well-developed, Present well-nourished HENT HENT: Present normocephalic, Present atraumatic, Present oropharynx clear/moist, Present nose normal HENT L/R: Present left ext ear normal, Present right ext ear normal EYES Eyes: Reports PERRL, Reports conjunctivae normal NECK Neck: Present ROM normal PULMONARY Pulmonary: Present effort normal, Present breath sounds normal CARDIOVASCULAR Cardiovascular: Present regular rhythm, Present heart sounds normal, Present capillary refill normal, Present normal rate GASTROINTESTINAL Abdominal: Present soft, Present nontender, Present bowel sounds normal GENITOURINARY Genitourinary: Present exam deferred SKIN Skin: Present warm, Present dry MUSCULOSKELETAL Musculoskeletal: Present ROM normal NEUROLOGICAL Neurological: Present alert, Present oriented x 3, Present no gross motor or sensory deficits PSYCHOLOGICAL Psychological: Present mood/affect normal, Present judgement normal Results Laboratory Result Diagram: 03/19/2024 03/19/20 0524 Laboratory Laboratory Tests Test 03/19/20 05:24 White Blood Count 9.90 x10e3/uL (4.8-10.8) Red Blood Count 3.78 x10e6/uL (3.6-5.1) Hemoglobin 11.4 g/dL (12.0-16.0) Hematocrit 35.2 % (34.2-44.1) Mean Corpuscular Volume 93.1 fL (81-99) Mean Corpuscular Hemoglobin 30.2 pg (28-32) Mean Corpuscular Hemoglobin Concent 32.4 g/dL (31-35) Red Cell Distribution Width 13.8 % (11.7-14.4) Platelet Count 323 x10e3/uL (140-360) Neutrophils (%) (Auto) 54.5 % (38.7-80.0) Lymphocytes (%) (Auto) 35.4 % (18.0-39.1) Monocytes (%) (Auto) 6.8 % (4.4-11.3) Eosinophils (%) (Auto) 2.2 % (0.0-6.0) Basophils (%) (Auto) 0.5 % (0.0-1.0) Neutrophils # (Auto) 5.4 (2.1-6.9) Lymphocytes # (Auto) 3.5 (1.0-3.2) Monocytes # (Auto) 0.7 (0.2-0.8) Eosinophils # (Auto) 0.2 (0.0-0.4) Basophils # (Auto) 0.1 (0.0-0.1) Absolute Immature Granulocyte (auto 0.06 x10e3/uL (0-0.1) Urine Color Yellow (YELLOW) Urine Clarity Clear (CLEAR) Urine pH 7 (5 - 7) Urine Specific [place] 1.025 (1.010-1.025) Urine Protein Negative (NEGATIVE) Urine Glucose (UA) Negative (NEGATIVE) Urine Ketones Negative (NEGATIVE) Urine Blood Negative (NEGATIVE) Urine Nitrite Negative (NEGATIVE) Urine Bilirubin Negative (NEGATIVE) Urine Urobilinogen 0.2 mg/dL (0.2 - 1) Urine Leukocyte Esterase Negative (NEGATIVE) Urine RBC 0-5 /HPF (0-5) Urine WBC 0-5 /HPF (0-5) Urine Epithelial Cells Few /LPF (NONE) Urine Bacteria Rare /HPF (NONE) Sodium Level 134 mmol/L (136-145) Potassium Level 3.9 mmol/L (3.5-5.1) Chloride Level 99 mmol/L (98-107) Carbon Dioxide Level 25 mmol/L (22-29) Anion Gap 13.9 mmol/L (8-16) Blood Urea Nitrogen 13 mg/dL (7-26) Creatinine 0.98 mg/dL (0.57-1.11) Estimat Glomerular Filtration Rate > 60 ML/MIN (60-) BUN/Creatinine Ratio 13 (6-25) Glucose Level 114 mg/dL (74-118) Calcium Level 8.5 mg/dL (8.4-10.2) Total Bilirubin 0.1 mg/dL (0.2-1.2) Aspartate Amino Transf (AST/SGOT) 20 IU/L (5-34) Alanine Aminotransferase (ALT/SGPT) 43 IU/L (0-55) Alkaline Phosphatase 76 IU/L (40-150) Creatine Kinase 92 IU/L (29-168) Creatine Kinase MB 1.20 ng/mL (0-5.0) Troponin I 0.001 ng/mL (0-0.300) Total Protein 7.2 g/dL (6.5-8.1) Albumin 3.7 g/dL (3.5-5.0) Globulin 3.5 g/dL (2.3-3.5) Albumin/Globulin Ratio 1.1 (0.8-2.0) Urine Opiates Screen Negative (NEGATIVE) Urine Methadone Screen Negative (NEGATIVE) Urine Barbiturates Screen Negative (NEGATIVE) Urine Phencyclidine Screen Negative (NEGATIVE) Urine Amphetamines Screen Negative (NEGATIVE) Urine Methamphetamines Screen Negative (NEGATIVE) Urine Benzodiazepines Screen Negative (NEGATIVE) Urine Cocaine Screen Negative (NEGATIVE) Urine Cannabinoids Screen Negative (NEGATIVE) Assessment & Plan Medical Decision Making MDM This patient presents with a headache most consistent with complex migraine. Differential diagnosis includes migraine versus tension type headache. No headache red flags. Neurologic exam without evidence of meningismus, focal neurologic findings. Presentation not consistent with acute intracranial bleed to include SAH (lack of risk factors, headache history). 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 Presentation not consistent with other acute, emergent causes of headache at this time. Plan to treat symptomatically with pain me dication. No indication for imaging/LP at this time. Plan: pain medication, CT brain, serial reassessment Reassessment Reassessment Patient noted relief migraine cocktail which included Reglan, Benadryl, IV fluids and Fioricet. Patient stable for discharge home. No focal neurological symptoms. Neuro exam is benign. Pt is nontoxic. VSS. Based on history and normal neurological exam I have low suspicion for intracranial tumor, intracranial bleed, meningitis, temporal arteritis, glaucoma, CO poisoning. Most likely patient has benign headache, recommend rest, hydration, and ibuprofen. Disposition: Discharge home with strict return precautions and instructions for prompt primary care follow up. Assessment & Plan Final Impression: (1) Migraine Depart Disposition: HOME, SELF-CARE Last Vital Signs Date Time Temp Pulse Resp B/P (MAP) Pulse Ox O2 Delivery O2 Flow Rate FiO2 03/19/20 05:22 97.9 55 20 112/78 100 Room Air Home Meds Active Scripts Sulfamethoxazole/Trimethoprim (BACTRIM DS TABLET) 1 Each Tablet, 1 EACH PO BID, #20 Prov:SOLE WESTON NP 04/04/15 Reported Medications Topiramate (TOPAMAX) 200 Mg Tablet, 200 MG PO BID 03/30/15 [Oxycarbazpine] No Conflict Check, 300 MG PO BID 03/30/15 Gabapentin (GABAPENTIN) 300 Mg Capsule, 300 MG PO TID, #60 CAP 03/30/15 Glatiramer (Copolymer-1) (COPAXONE) 20 Mg/Kit Syr, 20 MG SQ DAILY 12/14/12 Paroxetine Hcl (PAXIL) 20 Mg Tablet, 20 MG PO DAILY 12/14/12 Medications in the ED Sodium Chloride 1,000 ml @ 0 mls/hr Q0M STAT IV ; Start 03/19/20 at 06:13; Stop 03/19/20 at 06:14 Metoclopramide HCl 10 mg ONCE ONCE IV ; Start 03/19/20 at 06:15; Stop 03/19/20 at 06:16 Diphenhydramine HCl 25 mg NOW ONCE IV ; Start 03/19/20 at 06:15; Stop 03/19/20 at 06:16 Acetaminophen/ Butalbital/ Caffeine 1 ea ONCE ONCE PO ; Start 03/19/20 at 06:15; Stop 03/19/20 at 06:16 Magnesium Sulfate 50 ml @ 25 mls/hr ONCE ONCE IV ; Start 03/19/20 at 06:15; Stop 03/19/20 at 08:14 LINN STAFFORD DO Mar 19, 2020 07:09
[2020-03-19] MEDS ORDERED: REGLAN10 MG PO (08:41)
[2020-03-19] MEDS ORDERED: BENADRYL25 M1 PO (08:41)
[2020-03-19] MEDS ORDERED: FIORICET 50-301 EACH PO (08:41)
== END 2020-03-19 09:01 | disposition home or self-care (01) ==
LOC: ER 05:37
DX: G43.909 Migraine, unspecified, not intractable, without status migrainosus (principal); I10 Essential (primary) hypertension; G35 Multiple sclerosis; G40.909 Epilepsy, unspecified, not intractable, without status epilepticus
CPT/HCPCS: 36415; 70450; 71045; 80053; 80307; 81001; 82550; 82553; 84484; 85025; 93005; 99284; J1200; J2765; J3475; J7030